=== PATIENT | male | born 1970 | race Caucasian/White ===

== ENCOUNTER 2019-01-19 15:24 | Emergency (ER) | payer OTHER ==
[~2019-01-19] VITALS: Ht 185.4 cm; Wt 113.4 kg
[~2019-01-19 15:24] MED LIST: ALBU4 PO; ALBU90OI INH; Augmentin 875-1 EACH PO; CLOZ100 PO; DIVA250EC; DIVA250EC PO; DIVA500EC PO; DOCU100 PO; Hair, Skin & N1 EACH PO; LEVSOD137 PO; METO25ER PO; PANT20 PO; PROP10 PO; Prednisone20 MG PO; RISP1; Senna8.6 MG PO
[2019-01-19 16:28] LABS: BASOPHILS ABSOLUTE AUTO 0.07 K/mm3 (0.00-0.23); BASOPHILS PERCENT AUTO 1 % (0-2); EOSINOPHILS ABSOLUTE AUTO 0.21 K/mm3 (0.00-0.68); EOSINOPHILS PERCENT AUTO 2 % (0-6); Hematocrit 43.2 % (37.0-53.0); Hemoglobin 14.4 g/dL (13.5-17.5); IMMATURE GRAN ABSOLUTE AUTO 0.04 K/mm3 (0.00-0.10); IMMATURE GRAN PERCENT AUTO 0 % (0-1); LYMPHOCYTES ABSOLUTE AUTO 2.28 K/mm3 (0.84-5.20); LYMPHOCYTES PERCENT AUTO 25 % (21-46); MONOCYTES ABSOLUTE AUTO 0.92 K/mm3 (0.16-1.47); MONOCYTES PERCENT AUTO 10 % (4-13); Mean Corpuscular HGB 29.6 pg (26.0-34.0); Mean Corpuscular HGB Conc 33.3 g/dL (31.5-36.5); Mean Corpuscular Volume 89 fL (80-100); Mean Platelet Volume 8.6 fL (9.1-12.4); NEUTROPHILS ABSOLUTE AUTO 5.66 K/mm3 (1.96-9.15); NEUTROPHILS PERCENT AUTO 62 % (41-73); Platelet Count 180 K/mm3 (150-400); RDW Coefficient Variation 13.8 % (11.7-14.2); RDW Standard Deviation 45.1 fL (35.1-46.3); Red Blood Cell Count 4.86 M/mm3 (4.30-5.90); White Blood Cell Count 9.18 K/mm3 (4.00-11.30)
[2019-01-19 17:05] LABS: Alanine Aminotransfer (ALT/SGP 20 U/L (12-78); Albumin, Blood 3.6 g/dL (3.4-5.0); Albumin/Globulin Ratio 0.9 (0.8-1.8); Alk Phos 77 U/L (50-136); Anion Gap 5 mmol/L (6-16); Aspartate Aminotrans (AST/SGOT 19 U/L (12-37); Bilirubin, Total 0.5 mg/dL (0.1-1.0); Blood Urea Nitrogen 9 mg/dL (8-24); CO2, Blood 28 mmol/L (21-32); Calcium, Blood 8.6 mg/dL (8.5-10.1); Chloride, Blood 104 mmol/L (98-108); Creatinine, Blood 0.75 mg/dL (0.60-1.20); Globulin, Blood 3.8 g/dL (2.2-4.0); Glomerular Filtration Rate >60 (60-); Glucose, Blood 97 mg/dL (70-99); Potassium, Blood 3.4 mmol/L (3.5-5.5); Sodium, Blood 137 mmol/L (136-145); Total Protein, Blood 7.4 g/dL (6.4-8.2); Troponin I <0.015 ng/mL (0.000-0.040)
[2019-01-19] MEDS ORDERED: ONDA4ODT MM (20:17)
[2019-01-19] MEDS ORDERED: Protonix40 MG PO (20:17)
[2019-01-19] MEDS ORDERED: HYDPAM50 PO (20:22)
[2019-01-19] MEDS ORDERED: Polyethylene G500 G4 (20:24)
== END 2019-01-19 20:43 | disposition home or self-care (01) ==
LOC: ER 15:24
PROVIDERS: Physician Assistant
DX: K21.9 Gastro-esophageal reflux disease without esophagitis (principal); Z79.899 Other long term (current) drug therapy; F20.9 Schizophrenia, unspecified; D64.9 Anemia, unspecified; E03.9 Hypothyroidism, unspecified; F17.210 Nicotine dependence, cigarettes, uncomplicated
CPT/HCPCS: 36415; 71046; 80053; 82947; 83690; 84484; 85025; 93005; 93010; 99284-25

== ENCOUNTER 2019-03-19 13:41 | Inpatient (IN) | payer OTHER ==
[~2019-03-19] VITALS: Ht 185.4 cm; Wt 98.6 kg
[~2019-03-19 13:41] MED LIST changes: +HYDPAM50 PO; +ONDA4ODT MM; +Polyethylene G500 G4; +Protonix40 MG PO
[2019-03-19 16:35] LABS: BASOPHILS ABSOLUTE AUTO 0.07 K/mm3 (0.00-0.23); BASOPHILS PERCENT AUTO 1 % (0-2); EOSINOPHILS ABSOLUTE AUTO 0.15 K/mm3 (0.00-0.68); EOSINOPHILS PERCENT AUTO 2 % (0-6); Hematocrit 41.1 % (37.0-53.0); Hemoglobin 13.4 g/dL (13.5-17.5); IMMATURE GRAN ABSOLUTE AUTO 0.02 K/mm3 (0.00-0.10); IMMATURE GRAN PERCENT AUTO 0 % (0-1); LYMPHOCYTES PERCENT AUTO 30 % (21-46); MONOCYTES ABSOLUTE AUTO 0.72 K/mm3 (0.16-1.47); MONOCYTES PERCENT AUTO 10 % (4-13); Mean Corpuscular HGB 29.3 pg (26.0-34.0); Mean Corpuscular HGB Conc 32.6 g/dL (31.5-36.5); Mean Corpuscular Volume 90 fL (80-100); Mean Platelet Volume 9.4 fL (9.1-12.4); NEUTROPHILS ABSOLUTE AUTO 4.35 K/mm3 (1.96-9.15); NEUTROPHILS PERCENT AUTO 57 % (41-73); Platelet Count 255 K/mm3 (150-400); RDW Standard Deviation 46.2 fL (35.1-46.3); Red Blood Cell Count 4.58 M/mm3 (4.30-5.90); White Blood Cell Count 7.61 K/mm3 (4.00-11.30)
[2019-03-19 17:03] LABS: Alanine Aminotransfer (ALT/SGP 30 U/L (12-78); Albumin, Blood 3.9 g/dL (3.4-5.0); Albumin/Globulin Ratio 1.2 (0.8-1.8); Alk Phos 76 U/L (50-136); Anion Gap 6 mmol/L (6-16); Aspartate Aminotrans (AST/SGOT 38 U/L (12-37); Bilirubin, Total 0.8 mg/dL (0.1-1.0); Blood Urea Nitrogen 14 mg/dL (8-24); CO2, Blood 23 mmol/L (21-32); Calcium, Blood 8.6 mg/dL (8.5-10.1); Chloride, Blood 107 mmol/L (98-108); Creatinine, Blood 0.67 mg/dL (0.60-1.20); Ethanol (Alcohol), Blood, Med <3 mg/dL; Globulin, Blood 3.3 g/dL (2.2-4.0); Glomerular Filtration Rate >60 (60-); Glucose, Blood 85 mg/dL (70-99); Potassium, Blood 3.4 mmol/L (3.5-5.5); Sodium, Blood 136 mmol/L (136-145); Total Protein, Blood 7.2 g/dL (6.4-8.2)
[2019-03-19 17:07] LABS: Free Thyroxine 1.11 ng/dL (0.70-1.60); Valproic Acid <3.0 ug/mL (50.0-100.0)
[2019-03-19 17:10] LABS: Acetaminophen, Random <2.0 ug/mL (10.0-30.0)
[2019-03-19] MEDS ORDERED: PROAIR RESPICL90 MCG INH (19:20)
[2019-03-19] MEDS ORDERED: ATOR40TA PO (19:21)
[2019-03-19] MEDS ORDERED: EPINEPHRIN0.3 MG/0.3 IM (19:22)
[2019-03-19] MEDS ORDERED: FUROSEMIDE20 MG PO (19:22)
[2019-03-19] MEDS ORDERED: Loratadine10 MG PO (19:23)
[2019-03-19] MEDS ORDERED: EUTHYROX100 MCG PO (19:23)
[2019-03-19] MEDS ORDERED: PANT40 PO (19:24)
[2019-03-19] MEDS ORDERED: ONDA4ODT MM (19:24)
[2019-03-19] MEDS ORDERED: POTA10T PO (19:25)
[2019-03-19] MEDS ORDERED: VALP250 PO (19:29)
[2019-03-19] MEDS ORDERED: Zantac150 MG PO (19:29)
[2019-03-19] MEDS ORDERED: Inderal 20 mg T20 MG PO (19:29)
[2019-03-22 13:17] LABS: Source, Urine Clean Catch
[2019-03-22 13:20] LABS: Bilirubin, Urine Neg (Neg); Blood, Urine Neg (Neg); Glucose Qualitative, Urine Neg (Neg); Ketones, Urine Neg (Neg); Leukocyte Esterase, Urine Neg (Neg); Nitrite, Urine Neg (Neg); Protein, Urine Neg (Neg); Urobilinogen, Urine NORM (Normal)
[2019-03-22 13:27] LABS: Appearance, Urine Clear (Clear); Color, Urine Yellow (P-Yellow)
[2019-03-22 13:49] LABS: U Amphetamine Screen Not Detected; U Barbituate Screen Not Detected; U Benzodiazapine Screen Not Detected; U Buprenorphine Screen Not Detected; U Cannabinoids Screen Not Detected; U Cocaine Screen Not Detected; U Methadone Screen Not Detected; U Methamphetamine Screen Not Detected; U Opiates Screen Not Detected; U Oxycodone Screen Not Detected; U Phencyclidine Screen Not Detected; U Propoxyphene Screen Not Detected
[2019-03-22 19:16] LABS: BASOPHILS ABSOLUTE AUTO 0.03 K/mm3 (0.00-0.23); BASOPHILS PERCENT AUTO 0 % (0-2); EOSINOPHILS ABSOLUTE AUTO 0.02 K/mm3 (0.00-0.68); EOSINOPHILS PERCENT AUTO 0 % (0-6); Hemoglobin 13.5 g/dL (13.5-17.5); IMMATURE GRAN ABSOLUTE AUTO 0.04 K/mm3 (0.00-0.10); IMMATURE GRAN PERCENT AUTO 0 % (0-1); LYMPHOCYTES ABSOLUTE AUTO 1.44 K/mm3 (0.84-5.20); LYMPHOCYTES PERCENT AUTO 16 % (21-46); MONOCYTES ABSOLUTE AUTO 0.71 K/mm3 (0.16-1.47); MONOCYTES PERCENT AUTO 8 % (4-13); Mean Corpuscular HGB 29.4 pg (26.0-34.0); Mean Corpuscular HGB Conc 32.9 g/dL (31.5-36.5); Mean Corpuscular Volume 89 fL (80-100); Mean Platelet Volume 9.3 fL (9.1-12.4); NEUTROPHILS PERCENT AUTO 75 % (41-73); Platelet Count 207 K/mm3 (150-400); RDW Coefficient Variation 14.2 % (11.7-14.2); RDW Standard Deviation 46.4 fL (35.1-46.3); Red Blood Cell Count 4.59 M/mm3 (4.30-5.90); White Blood Cell Count 8.94 K/mm3 (4.00-11.30)
[2019-03-22 19:32] LABS: Anion Gap 5 mmol/L (6-16); Blood Urea Nitrogen 7 mg/dL (8-24); Bun/Creatinine Ratio 11.7 (12.0-20.0); CO2, Blood 26 mmol/L (21-32); Calcium, Blood 8.9 mg/dL (8.5-10.1); Chloride, Blood 106 mmol/L (98-108); Glomerular Filtration Rate >60 (60-); Glucose, Blood 160 mg/dL (70-99); Potassium, Blood 3.8 mmol/L (3.5-5.5); Sodium, Blood 137 mmol/L (136-145)
--- NOTE | 2019-03-23 00:31 | NUR ---
REPORT RECIEVED FROM IVAN KAPADIA RN, AND AWAITING PT T/F TO ROOM 353.
--- NOTE | 2019-03-23 01:20 | NUR ---
PT WAS INDEPENDENT IN ER BUT ARRIVES TIRED/SLEEPING. HE T/F'D HIMSELF W/EYES CLOSED FROM GURNEY TO BED THEN LAYED DOWN AND IMMEDIATELY LACKED ANY FURTHER INTERACTION. HE IS CAPABLE OF WAKING TO VOICE BUT IS EXTREMELY WITHDRAWN/FLAT AND APPEARS TO IGNORE STAFF AND CHOOSES NOT TO OPEN HIS EYES WHEN SPOKEN TO OR PROMPTED TO DO SO. HE DOESN'T FOLLOW INSTRUCTION AND ANSWERED VERY MINIMAL Q'S SELECTIVELY. HE REFUSED THE MAJORITY OF THE ASSESSMENT PROMPTS AND WOULDN'T ANSWER Q'S PERTAINING TO HEALTH HX OR HOME MEDS. HE REFUSED LOVENOX INJECTION, SAID "NO" TO PAIN, STATED "I DON'T KNOW" TO DATE AND ONLY VOLUNTEERED HIS 1ST NAME WHEN ASKED ORIENTATION Q'S. WHEN OBSERVING HIS R.EYE HE ALLOWED STAFF TO MANUALLY ROTATE HIS HEAD TOWARD STAFF BUT HE WOULDN'T PHYSICALLY OPEN HIS EYES HIMSELF. HEALTH HX/MED REC WILL HAVE TO BE OBTAINED FROM PREVIOUS DOCUMENTATION AND/OR FOLLOWED UP BY DAY RN. MEDICATIONS ARE LIKELY ACCURATE THOUGH SINCE PT WAS IN ER SINCE 03/19/19 AND HAD BEEN VERIFIED BY A PHARMACIST THERE. WILL MONITOR AND MEDICATE PER EMAR. NO EVIDENCE DISTRESS AND PT W/O COMPLAINTS.
--- NOTE | 2019-03-23 02:43 | NUR ---
Pt is wandering around room right now, pulled off tele and was intimidating the nurse and I, by clenching his hand, and looking very agitated he's independant in the room.
--- NOTE | 2019-03-23 03:51 | NUR ---
PT REFUSES TO WEAR TELEMETRY AND ACTED COMBATIVE WHEN STAFF ATTEMPTED TO REPLACE IT. HE BEGAN PACING IN HIS ROOM, SPOKE NONSENSICALLY, ACTED PARANOID AND APPEARED TO BE RESPONDING TO INTERNAL STIMULI. NO ATTEMPTS AT CALMING PT, REORIENTING HIM OR DIFFUSING HIM SEEMED TO BE EFFECTIVE. STAFF LEFT ROOM TO GIVE PT SOME SPACE. [facility]ER[facility] MONITORS ARE AWARE TO ALERT OF ANY SUSPICIOUSE BEHAVIOR. ALERTED TO SITUATION, RECENT TACHYCARDIA AND PSYCH MEDS AND AUTHORIZED TO DC TELEMETRY AT THIS TIME. WILL CONTINUE TO MONITOR CLOSELY FOR CHANGES OR S/S CARDIAC DISTRESS THOUGH NONE HAS BEEN EVIDENT THUS FAR.
--- NOTE | 2019-03-23 04:35 | NUR ---
PT AWOKE AGGITATED AND HALLUCINATING W/CONTINUED NONSENICAL SPEECH BUT WAS COOPERATIVE AT THE TIME SO STAFF GAVE AM MEDS EARLY AND COMMENCED IVF. ZYPREXA PO PRN WAS ALSO GIVEN TO CALM PT AND PROMOTE SLEEP/REST CYCLE. WILL MONITOR FOR EFFECT.
[2019-03-23 04:58] LABS: BASOPHILS ABSOLUTE AUTO 0.03 K/mm3 (0.00-0.23); BASOPHILS PERCENT AUTO 0 % (0-2); EOSINOPHILS ABSOLUTE AUTO 0.05 K/mm3 (0.00-0.68); EOSINOPHILS PERCENT AUTO 1 % (0-6); Hematocrit 38.9 % (37.0-53.0); Hemoglobin 12.7 g/dL (13.5-17.5); IMMATURE GRAN ABSOLUTE AUTO 0.03 K/mm3 (0.00-0.10); IMMATURE GRAN PERCENT AUTO 0 % (0-1); LYMPHOCYTES ABSOLUTE AUTO 1.73 K/mm3 (0.84-5.20); LYMPHOCYTES PERCENT AUTO 18 % (21-46); MONOCYTES ABSOLUTE AUTO 0.75 K/mm3 (0.16-1.47); MONOCYTES PERCENT AUTO 8 % (4-13); Mean Corpuscular HGB 29.3 pg (26.0-34.0); Mean Corpuscular HGB Conc 32.6 g/dL (31.5-36.5); Mean Corpuscular Volume 90 fL (80-100); Mean Platelet Volume 9.2 fL (9.1-12.4); NEUTROPHILS ABSOLUTE AUTO 6.93 K/mm3 (1.96-9.15); NEUTROPHILS PERCENT AUTO 73 % (41-73); Platelet Count 213 K/mm3 (150-400); RDW Coefficient Variation 14.1 % (11.7-14.2); RDW Standard Deviation 46.7 fL (35.1-46.3); Red Blood Cell Count 4.34 M/mm3 (4.30-5.90); White Blood Cell Count 9.52 K/mm3 (4.00-11.30)
[2019-03-23 05:14] LABS: Anion Gap 8 mmol/L (6-16); Blood Urea Nitrogen 8 mg/dL (8-24); Bun/Creatinine Ratio 14.9 (12.0-20.0); CO2, Blood 24 mmol/L (21-32); Calcium, Blood 8.4 mg/dL (8.5-10.1); Chloride, Blood 109 mmol/L (98-108); Creatinine, Blood 0.54 mg/dL (0.60-1.20); Glomerular Filtration Rate >60 (60-); Glucose, Blood 111 mg/dL (70-99); Sodium, Blood 141 mmol/L (136-145)
--- NOTE | 2019-03-23 06:00 | NUR ---
ATTEMPTED TO REEVALUATE SI D/T 2MD HOLD FROM ER STATING SI PART OF HIS INITIAL DIAGNOSIS BUT PT REFUSES TO ANSWER ANY Q'S PERTAINING SUICIDE SEVERITY ASSESSMENT. WILL HAVE DAY STAFF F/U. CAMERA MONITORING REMAINS IN PLACE AND PT HAS EXHIBITED NO ATTEMPTS TO HARM HIMSELF SINCE ARRIVAL TO FLOOR.
--- NOTE | 2019-03-23 06:09 | NUR ---
AFTER DISCUSSION W/ELIAS [employer] INSPECTOR AND REVIEW OF THE TELEPSYCH CONSULTATION ON THE CHART, IT STATES THAT THE PT ADMITTED TO HAVING SI AT THE TIME AND THIS WAS LISTED THE CHIEF COMPLAINT. PT PLACED IN SI PRECAUTIONS AT THIS TIME D/T NO OFFICIAL ORDERS TO D/C PRECAUTIONS IN PLACE IN ER. ROOM HAS BEEN MODIFIED NOW TO MEET SI PRECAUTION PROTOCOL. PT SLEPT WHILE CHANGES WERE MADE.
--- NOTE | 2019-03-23 06:16 | NUR ---
SUMMARY: PT'S MENTATION IS LABILE. HE IS OCCASIONALLY CALM AND COOPERATIVE W/CARE BUT QUICKLY ESCALATES AND BECOMES ANXIOUS, AGGITATED, EXPRESSES NEARLY COMBATIVE BEHAVIORS AND WON'T FOLLOW INSTRUCTION. WHEN MORE LUCID HE SEEMS TO BE ORIENTED TO SELF/SURROUNDINGS BUT WHEN WORKED UP HE IS ENTIRELY CONFUSED, NONSENSICAL, IS PARANOID AND SEEMS TO BE HAVING AUDITORY HALLUCINATIONS. ZYPREXA PRN, AM MEDS AND IVF WERE COMMENCED WHEN PT WAS SHOWING S/S ANXIETY BUT WAS COOPERATIVE. TELEMETRY WAS DC'D D/T PT REFUSING TO WEAR IT AND SHOWING THREATENING BEHAVIOR W/STAFF ATTEMPTS TO REPLACE IT. HE IS ON A 2 MD HOLD AND WAS JUST PLACED IN SI PREC'S AFTER THOROUGH REVIEW OF HIS CHART AND TELEPSYCH CONSULTATION. THE ER NURSE DENIED ANY ORDER FOR SI PREC'S BUT HE WAS DETERMINED TO HAVE HAD SI IN THE ER W/PREC'S IN PLACE WHICH NEVER WERE DC'D BY A PHYSICIAN. THIS RN ATTEMPTED TO REPEAT THE SI SCREENING BUT PT REFUSED TO ANSWER ANY Q'S. HE IS UP INDEPENDENTLY IN HIS ROOM AND USES TOILET TO VOID. PT HAS REDNESS W/EDEMA TO HIS R.LOWER EYE, R.CHEEK AND BOTH LIPS FROM A POSSIBLE TOOTH INFECTION. ABX WERE COMMENCED IN ER AND PT SHOWS NO S/S OF SEPSIS. HE HAS BEEN ON CAMERA MONITORING T/O THE NOCTE AND HIS ROOM HAS NOW BEEN MODIFIED TO MEET SI PREC PROTOCOL. HEALTH HX AND MED REC SHOULD BE REVISED WHEN PT IS MORE COMPLIANT AND ABLE TO ANSWER THESE Q'S APPROPRIATELY. HE REFUSED W/ATTEMPTS THIS SHIFT. NO ACUTE CHANGES, VSS/AFEBRILE. WCTM/REPORT TO DAY RN.
--- NOTE | 2019-03-23 09:28 | NUR ---
Discharge planning at request of [address], for Room 353 admitted last night from ED crisis unit. Patient is on 2 MD Hold, a ptient of Bri with the ACT team. Crisis unit was searching for acute ipatient psych be per psych assessment by Twila Niño and ruddy. Patient brought to ED by Bri on 03-19-19. Patient has increased psychosis and been off of meds. ACT team nurse, Emperatriz called, and Lead, Joceline, at 0830. Patient had been on Clozaril before but has not taken it for 2 weeks or more. Nurse suggested he may be having reaction to re-start of Clozaril, as she reviewed his lab work and saw that his white count was normal. Requested she call Yenifer 3rd floor RN to relay information, as patient has started Clozaril. SAMI Car,. will call [facility] to see if they will reserve his bed for admit, once he is medicall stabilized. Fina Beckham M.Ed., [facility] Behavioral Health Director
--- NOTE | 2019-03-23 15:11 | NUR ---
SUMMARY PT WA AWAKE, ALERT THIS AM. STATE NO THOUGHTS OF HARMING SELF/SI @ THIS TIME. STATE CONTINUES TO HEAR VOICES INTERMITTANTLY. STATE FEELS SAFE. STATE NO DISCOMFORT/PAIN. AFTER AM MEDS HE HAS SLEPT SOUNDLY. [employer] SALES ACCOUNT EXECUTIVE MARISA STATE NO TRANSFER TODAY TO INPT PSYCHE. DR LAMAS IN TO ASSESS FACIAL REDNESS & DENTITION. CHANGE ANTIBX TO ORAL & D/C IVF. DR ROMO IN THIS AFTERNOON FOR PSYCHE ASSESSMENT HOWEVER PT TOO DROWSY TO PARTICIPATE, STATES TO CONTINUE SUICIDE PRECAUTIONS @ THIS TIME UNTIL FURTHER EVAL & CHANGE MEDS TO PROMOTE DAYTIME ALERTNESS & SLEEP @ NITE. VSS.
--- NOTE | 2019-03-23 18:34 | NUR ---
PT AWAKE APPROX 1700. LRG URINE VOID. AFFECT FLAT, IRRITABLE HOWEVER CALM. DOES NOT INTERACT APPROP. @ ONE POINT ROLLS EYES BACK W/O RESPONDING. LATER @ DINNER HE IS MORE APPROP, ANSWERS POLITELY, SITTING UP ON BEDSIDE TO EAT. UP TO BR.
--- NOTE | 2019-03-24 07:49 | NUR ---
SHIFT SUMMARY PT IS A 48 Y/O MALE, ADMITTED FOR SCHIZOPHRENIA. HE IS A&O X SELF ONLY, WITH SOFT AND OCCASIONALLY NONSENSICAL SPEECH WITH AUDIO AND VISUAL HALLUCINATIONS. PT DOES WANDER AROUND THE ROOM AND OCCASIONALLY INTO THE HALLWAY. NO COMPLAINTS OF PAIN, NAUSEA OR SOB, THOUGH PT DOES STILL HAVE SOME FACIAL REDNESS AND SWELLING IN THE R-SIDE OF THE FACE. NO OTHER ACUTE CHANGES IN PT CONDITION NOTED. REPORT GIVEN TO ONCOMING RN.
[2019-03-24 08:38] LABS: Valproic Acid 74.7 ug/mL (50.0-100.0)
--- NOTE | 2019-03-24 10:13 | NUR ---
[facility] texted that a residential bed in [facility] accepted patient. [facility] does not know when he can be admitted. Charge nurse updated. He has not been accepted at [facility] inpatient yet. Case Management and nursing will continue to monitor calls for acceptance at inpatient facilities they have sent referral packets to. [facility] will update Charge Nurse if there is any notification that the residential bed becomes available. If not, [facility] will follow for DC planning to whatever inpatient facility he transfers to. Fina Beckham M.Ed., [facility]
--- NOTE | 2019-03-24 11:43 | NUR ---
DC planning--[facility] informed this lead technical writer that [facility] can admit him Mar 24. Continue seeking inpatient. [facility] reports his [facility] tem will pick him up Friday to house him in a hotel with daily check ins. Case management will be notified by this lead technical writer to ask them to inform physicians, and plan ea rlier discharge as physicians order. Fina Beckham M.Ed.
--- NOTE | 2019-03-24 16:26 | NUR ---
pt states feels agitated. bp some elevated. medicated per emar
--- NOTE | 2019-03-24 17:25 | NUR ---
PT PLEASANT TODAY, WALKS HALLS REGULARLY, REDIRECTS BACK TO ROOM WHEN OUT. DR RELEASED PT FROM SI. CONTINUING TO KEEP MONITOR ON FOR HIS SAFETY. PENDING PLACEMENTS. BED IN LOW POSITION, CALL LITE IN REACH, MONITOR FOR SAFETY
--- NOTE | 2019-03-25 06:15 | NUR ---
SHIFT SUMMARY PT HAS HAD AUDITORY AND VISUAL HALLUCINATIONS, DOES NOT RESPOND TO RN WHEN ASKED WHAT HE HEARS/SEES. WANDERS IN THE [place], BUT IS REDIRECTABLE WHEN ASKED. PT IS QUIET AND RESERVED, SOFTLY TALKS TO HIMSELF ONLY. DOES NOT MAKE EYE CONTACT AND BODY LANGUAGE IS CLOSED OFF. PT IS NOT VIOLENT, COMBATIVE OR AGGRESSIVE TONIGHT. PT TOOK ALL PM MEDS WITHOUT DIFFICULTY AND WAS PROVIDED A PM SNACK BEFORE BED. DOES DISPLAY MANNERS WHEN GIVING SNACK, SAYS THANK YOU. THIS AM, PT REFUSED TO TAKE AM SYNTHROID. PT HAS DISHEVELED APPEARANCE. PT HAS SLEPT WELL THROUGH THE NIGHT. WILL CONT TO MONITOR AND PROVIDE CARE UNTIL PRESUMED BY ONCOMING RN.
[2019-03-25] MEDS ORDERED: AMOCLA875 PO (11:46)
[2019-03-25] MEDS ORDERED: Florastor250 MG PO (11:46)
--- NOTE | 2019-03-25 13:10 | NUR ---
PATIENT DISCHARGE: PATIENT DISCHARGED TO [facility] THIS SHIFT. MEDICATION RECONCILIATION COMPLETED; MED LIST FAXED TO [facility]. DISCHARGE EDUCATION COMPLETED WITH [facility]. PATIENT DEPARTED MEDICAL FLOOR WITH [facility] AT 1306. PATIENT DEPARTED [facility]IA [facility].
== END 2019-03-25 13:25 | disposition home or self-care (01) | DRG 871 ==
LOC: ER 13:41 → MEDS 13:42 → EOR 13:42 → MEDS 13:42 → ENPENDDIS 03-25 11:18 → MEDS 03-25 13:25
PROVIDERS: Emergency Medicine; Physician Assistant; Psychiatry & Neurology Psychiatry; ADMIT Internal Medicine
DX: A41.9 Sepsis, unspecified organism (principal); J18.9 Pneumonia, unspecified organism; F20.0 Paranoid schizophrenia; L03.211 Cellulitis of face; J91.8 Pleural effusion in other conditions classified elsewhere; K04.7 Periapical abscess without sinus; K21.9 Gastro-esophageal reflux disease without esophagitis; E03.9 Hypothyroidism, unspecified; F17.210 Nicotine dependence, cigarettes, uncomplicated
CPT/HCPCS: 36415; 70450; 70486; 71046; 80048; 80053; 80164; 81003; 83605; 84439; 84443; 85025; 87040; 94760; 96365; 99285; A9270; G0378; G0480; J1650; J7030; Q3014